=== PATIENT | male | born 1950 | race Caucasian/White ===

== ENCOUNTER → 2017-01-25 | Outpatient (CLI) | payer MEDICARE, OTHER | END | disposition home or self-care (01) | LOC: LABWHC1 09:25 | PROVIDERS: ATTEND Internal Medicine Endocrinology, Diabetes & Metabolism | DX: E89.0 Postprocedural hypothyroidism (principal) | CPT/HCPCS: 36415; 84439; 84443 ==

== ENCOUNTER 2017-04-27 13:09 | Emergency (ER) | payer MEDICARE, OTHER ==
[2017-04-27] MEDS ORDERED: LORazepam 2 MG/ML SYRINGE IV STA (13:10)
[2017-04-27 13:17] VITALS: TEMP 99.2
--- NOTE | 2017-04-27 13:33 | ED ---
General Adult HPI <Júnior Brady - Last Filed: 04/27/17 21:13> - General Source: patient, RN notes reviewed Mode of arrival: ambulatory <Marcelino Penaloza - Last Filed: 04/28/17 07:40> - General Chief complaint: Psychiatric Symptoms Stated complaint: ETOH Time Seen by Provider: 04/27/17 13:15 - History of Present Illness Initial comments: This is a 67-year-old male presents emergency Department complaining of being an alcoholic. Patient states he quit for 8 years but about 4 months ago surgery heavily daily. Patient states today he was drinking again and he got depressed and thought he might harm himself came to the emergency department. Patient also complains of mild nausea. Patient denies any chest pain difficulty breathing shortest breath per patient denies any recent fever chills or cough. Patient denies abdominal pain patient denies nausea vomiting diarrhea. Patient denies headache patient denies numbness weakness. Patient has no specific plan for suicide and patient has no homicidal thoughts (Marcelino Penaloza) - Related Data Home Medications Medication Instructions Recorded Confirmed Ascorbic Acid [Vitamin C] 1,000 mg PO DAILY 04/27/17 04/27/17 Cholecalciferol [Vitamin D3] 1,000 unit PO DAILY 04/27/17 04/27/17 Levothyroxine Sodium [Levoxyl] 100 mcg PO DAILY 04/27/17 04/27/17 Losartan [Cozaar] 50 mg PO DAILY 04/27/17 04/27/17 Metoprolol Succinate (ER) [Toprol 50 mg PO BID 04/27/17 04/27/17 Xl] Multivitamins, Thera [Multivitamin 1 tab PO DAILY 04/27/17 04/27/17 (formulary)] Allergies Allergy/AdvReac Type Severity Reaction Status Date / Time No Known Allergies Allergy Verified 04/27/17 14:09 Review of Systems ROS Other: All systems not noted in ROS Statement are negative. <Júnior Brady - Last Filed: 04/27/17 21:13> ROS Other: All systems not noted in ROS Statement are negative. <Marcelino Penaloza - Last Filed: 04/28/17 07:40> ROS Statement: Those systems with pertinent positive or pertinent negative responses have been documented in the HPI. Past Medical History Past Medical History: No Reported History History of Any Multi-Drug Resistant Organisms: None Reported Past Surgical History: No Surgical Hx Reported Past Psychological History: Anxiety Smoking Status: Never smoker Past Alcohol Use History: Abuse, Heavy Past Drug Use History: None Reported <Marcelino Penaloza - Last Filed: 04/28/17 07:40> General Exam <YuligilJúnior - Last Filed: 04/27/17 21:13> <Marcelino Penaloza - Last Filed: 04/28/17 07:40> - General Exam Comments Initial Comments: GENERAL: Patient is well-developed and well-nourished. Patient is nontoxic and well- hydrated and is in no acute distress. ENT: Neck is soft and supple. No significant lymphadenopathy is noted. Oropharynx is clear. Moist mucous membranes. Neck has full range of motion without eliciting any pain. EYES: The sclera were anicteric and conjunctiva were pink and moist. Extraocular movements were intact and pupils were equal round and reactive to light. Eyelids were unremarkable. PULMONARY: Unlabored respirations. Good breath sounds bilaterally. No audible rales rhonchi or wheezing was noted. CARDIOVASCULAR: There is a regular rate and rhythm without any murmurs gallops or rubs. ABDOMEN: Soft and nontender with normal bowel sounds. No palpable organomegaly was noted. There is no palpable pulsatile mass. SKIN: Skin is clear with no lesions or rashes and otherwise unremarkable. NEUROLOGIC: Patient is alert and oriented x3. Cranial nerves II through XII are grossly intact. Motor and sensory are also intact. Normal speech, volume and content. Symmetrical smile. MUSCULOSKELETAL: Normal extremities with adequate strength and full range of motion. No lower extremity swelling or edema. No calf tenderness. LYMPHATICS: No significant lymphadenopathy is noted PSYCHIATRIC: Patient states she's been very depressed since he started drinking again and he has been thinking of harming himself even though he thinks he won't do it. (Marcelino Penaloza) Medical Decision Making - Lab Data Result diagrams: 04/27/17 13:50 04/27/17 13:50 <Júnior Brady - Last Filed: 04/27/17 21:13> - Lab Data Result diagrams: 04/27/17 13:50 04/27/17 13:50 <Marcelino Penaloza - Last Filed: 04/28/17 07:40> - Medical Decision Making Patient is now clinically sober. He has been reevaluated by myself and he is lyndsay for safety. He has been seen by behavioral health. He is not requiring admission for suicidality. Patient counseled to stop drinking heavily. Return parameters discussed (Júnior Brady) - Lab Data Lab Results 04/27/17 04/27/17 04/27/17 Range/Units 13:50 13:50 13:50 WBC 7.3 (3.8-10.6) k/uL RBC 4.63 (4.30-5.90) m/uL Hgb 16.0 (13.0-17.5) gm/dL Hct 48.8 (39.0-53.0) % MCV 105.3 H (80.0-100.0) fL MCH 34.6 (25.0-35.0) pg MCHC 32.8 (31.0-37.0) g/dL RDW 14.2 (11.5-15.5) % Plt Count 180 (150-450) k/uL Neutrophils % 71 % Lymphocytes % 21 % Monocytes % 4 % Eosinophils % 1 % Basophils % 1 % Neutrophils # 5.2 (1.3-7.7) k/uL Lymphocytes # 1.6 (1.0-4.8) k/uL Monocytes # 0.3 (0-1.0) k/uL Eosinophils # 0.1 (0-0.7) k/uL Basophils # 0.1 (0-0.2) k/uL Macrocytosis Moderate PT 10.3 (9.0-12.0) sec INR 1.0 (<1.2) APTT 23.5 (22.0-30.0) sec Sodium 146 H (137-145) mmol/L Potassium 4.2 (3.5-5.1) mmol/L Chloride 108 H (98-107) mmol/L Carbon Dioxide 23 (22-30) mmol/L Anion Gap 15 mmol/L BUN 20 (9-20) mg/dL Creatinine 1.32 H (0.66-1.25) mg/dL Est GFR (MDRD) Af Amer >60 (>60 ml/min/1.73 sqM) Est GFR (MDRD) Non-Af 54 (>60 ml/min/1.73 sqM) Glucose 63 L (74-99) mg/dL Calcium 8.9 (8.4-10.2) mg/dL Total Bilirubin 1.0 (0.2-1.3) mg/dL AST 69 H (17-59) U/L ALT 46 (21-72) U/L Alkaline Phosphatase 62 (38-126) U/L Total Protein 7.0 (6.3-8.2) g/dL Albumin 4.2 (3.5-5.0) g/dL Urine Opiates Screen (NotDetected) Ur Oxycodone Screen (NotDetected) Urine Methadone Screen (NotDetected) Ur Propoxyphene Screen (NotDetected) Ur Barbiturates Screen (NotDetected) U Tricyclic Antidepress (NotDetected) Ur Phencyclidine Scrn (NotDetected) Ur Amphetamines Screen (NotDetected) U Methamphetamines Scrn (NotDetected) U Benzodiazepines Scrn (NotDetected) Urine Cocaine Screen (NotDetected) U Marijuana (THC) Screen (NotDetected) 04/27/17 Range/Units 14:32 WBC (3.8-10.6) k/uL RBC (4.30-5.90) m/uL Hgb (13.0-17.5) gm/dL Hct (39.0-53.0) % MCV (80.0-100.0) fL MCH (25.0-35.0) pg MCHC (31.0-37.0) g/dL RDW (11.5-15.5) % Plt Count (150-450) k/uL Neutrophils % % Lymphocytes % % Monocytes % % Eosinophils % % Basophils % % Neutrophils # (1.3-7.7) k/uL Lymphocytes # (1.0-4.8) k/uL Monocytes # (0-1.0) k/uL Eosinophils # (0-0.7) k/uL Basophils # (0-0.2) k/uL Macrocytosis PT (9.0-12.0) sec INR (<1.2) APTT (22.0-30.0) sec Sodium (137-145) mmol/L Potassium (3.5-5.1) mmol/L Chloride (98-107) mmol/L Carbon Dioxide (22-30) mmol/L Anion Gap mmol/L BUN (9-20) mg/dL Creatinine (0.66-1.25) mg/dL Est GFR (MDRD) Af Amer (>60 ml/min/1.73 sqM) Est GFR (MDRD) Non-Af (>60 ml/min/1.73 sqM) Glucose (74-99) mg/dL Calcium (8.4-10.2) mg/dL Total Bilirubin (0.2-1.3) mg/dL AST (17-59) U/L ALT (21-72) U/L Alkaline Phosphatase (38-126) U/L Total Protein (6.3-8.2) g/dL Albumin (3.5-5.0) g/dL Urine Opiates Screen Not Detected (NotDetected) Ur Oxycodone Screen Not Detected (NotDetected) Urine Methadone Screen Not Detected (NotDetected) Ur Propoxyphene Screen Not Detected (NotDetected) Ur Barbiturates Screen Not Detected (NotDetected) U Tricyclic Antidepress Not Detected (NotDetected) Ur Phencyclidine Scrn Not Detected (NotDetected) Ur Amphetamines Screen Not Detected (NotDetected) U Methamphetamines Scrn Not Detected (NotDetected) U Benzodiazepines Scrn Not Detected (NotDetected) Urine Cocaine Screen Not Detected (NotDetected) U Marijuana (THC) Screen Not Detected (NotDetected) Disposition <Júnior Brady - Last Filed: 04/27/17 21:13> <Marcelino Penaloza - Last Filed: 04/28/17 07:40> Clinical Impression: Alcohol intoxication Disposition: HOME SELF-CARE Condition: Fair Instructions: Alcohol Intoxication (ED) Referrals: Martínez Garcia MD [Primary Care Provider] - 1-2 days
[2017-04-27 14:02] LABS: Basophils # (A) 0.1 k/uL (0-0.2); Basophils % (A) 1 %; CH 35.1; CHCM 33.5; Eosinophils # (A) 0.1 k/uL (0-0.7); Eosinophils % (A) 1 %; HCT 48.8 % (39.0-53.0); HDW 2.41; Luc # (Auto) 0.18; Luc % (Auto) 2; Lymphocytes # (A) 1.6 k/uL (1.0-4.8); Lymphocytes % (A) 21 %; MCH 34.6 pg (25.0-35.0); MCHC 32.8 g/dL (31.0-37.0); MCV 105.3 fL (80.0-100.0); Macrocytosis Moderate; Mean Platelet Volume 7.3; Monocytes # (A) 0.3 k/uL (0-1.0); Monocytes % (A) 4 %; Neutrophils # (A) 5.2 k/uL (1.3-7.7); Neutrophils % (A) 71 %; RBC 4.63 m/uL (4.30-5.90); RDW 14.2 % (11.5-15.5); WBC 7.3 k/uL (3.8-10.6); WBC (Perox) 7.06
[2017-04-27 14:13] LABS: ALT 46 U/L (21-72); AST 69 U/L (17-59); Alkaline Phosphatase 62 U/L (38-126); Anion Gap 15 mmol/L; Blood Urea Nitrogen 20 mg/dL (9-20); Calcium 8.9 mg/dL (8.4-10.2); Carbon Dioxide 23 mmol/L (22-30); Chloride 108 mmol/L (98-107); Glucose 63 mg/dL (74-99); Non-African American GFR(MDRD) 54 (>60 ml/min/1.73 sqM); Partial Thromboplastin Time 23.5 sec (22.0-30.0); Potassium 4.2 mmol/L (3.5-5.1); Prothrombin Time 10.3 sec (9.0-12.0); Sodium 146 mmol/L (137-145)
[2017-04-27 21:23] VITALS: BP 133/63; PULSE 62; RESP 18
== END 2017-04-27 21:23 | disposition home or self-care (01) ==
LOC: EC 13:09
DX: F10.129 Alcohol abuse with intoxication, unspecified (principal); F32.9 Major depressive disorder, single episode, unspecified; R45.851 Suicidal ideations; Z79.899 Other long term (current) drug therapy
CPT/HCPCS: 36415; 80053; 80306; 82075; 85025; 85610; 85730; 99284

== ENCOUNTER → 2018-02-09 | Outpatient (CLI) | payer MEDICARE, OTHER ==
[2018-02-09 09:17] LABS: T4, Free (Free Thyroxine) 1.22 ng/dL (0.78-2.19)
== END | disposition home or self-care (01) ==
LOC: LABWHC1 08:27
PROVIDERS: ATTEND Internal Medicine Endocrinology, Diabetes & Metabolism
DX: E89.0 Postprocedural hypothyroidism (principal)
CPT/HCPCS: 36415; 84439; 84443

== ENCOUNTER → 2018-07-23 | Outpatient (CLI) | payer MEDICARE, OTHER ==
[2018-07-23 07:47] LABS: HCT 43.6 % (39.0-53.0); HGB 14.1 gm/dL (13.0-17.5); MCH 31.1 pg (25.0-35.0); MCHC 32.4 g/dL (31.0-37.0); MCV 95.8 fL (80.0-100.0); Mean Platelet Volume 7.1; Platelet Count 150 k/uL (150-450); RBC 4.55 m/uL (4.30-5.90); WBC 4.7 k/uL (3.8-10.6)
[2018-07-23 11:32] LABS: T4, Free (Free Thyroxine) 1.4 ng/dL (0.80-1.80)
[2018-07-23 11:36] LABS: Anion Gap 4.7 mmol/L (4.00-12.00); Calcium 8.6 mg/dL (8.7-10.3); Carbon Dioxide 29.3 mmol/L (21.6-31.8); LDL Cholesterol,Calculated 68.2 mg/dL (0.0-131.0); Potassium 4.6 mmol/L (3.5-5.5); Total Bilirubin 1.1 mg/dL (0.3-1.2); VLDL Calculation 20.8 mg/dL (5.00-40.00)
== END | disposition home or self-care (01) ==
LOC: LABWHC1 06:34
PROVIDERS: ATTEND Internal Medicine
DX: I10 Essential (primary) hypertension (principal); Z12.5 Encounter for screening for malignant neoplasm of prostate; E89.0 Postprocedural hypothyroidism
CPT/HCPCS: 84439; 80061; 80053; 84443; 85027; 36415; G0103

== ENCOUNTER → 2019-02-05 | Outpatient (CLI) | payer MEDICARE, OTHER | END | disposition home or self-care (01) | LOC: LABWHC1 15:43 | PROVIDERS: ATTEND Internal Medicine | DX: E89.0 Postprocedural hypothyroidism (principal) | CPT/HCPCS: 36415; 84439; 84443 ==

== ENCOUNTER → 2020-02-14 | Outpatient (CLI) | payer MEDICARE, OTHER ==
[2020-02-15 00:04] LABS: T4, Free (Free Thyroxine) 1.4 ng/dL (0.80-1.80)
== END | disposition home or self-care (01) ==
LOC: LABWHC1 08:37
PROVIDERS: ATTEND Internal Medicine
DX: E89.0 Postprocedural hypothyroidism (principal); E55.9 Vitamin D deficiency, unspecified
CPT/HCPCS: 36415; 82306; 84439; 84443

== ENCOUNTER → 2020-06-08 | Outpatient (CLI) | payer MEDICARE, OTHER ==
--- NOTE | 2020-06-08 11:01 | CT ---
EXAMINATION TYPE: CT abdomen pelvis w con DATE OF EXAM: 06/08/2020 COMPARISON: None. HISTORY: Diverticulitis, unspecified pain. CT DLP: 781.6 mGycm, Automated Exposure Control for Dose Reduction was Utilized. CONTRAST: CT scan of the abdomen and pelvis is performed without oral but with IV Contrast, patient injected wi th 75 mL of Isovue 300. FINDINGS: LUNG BASES: Mild cardiomegaly. At least moderate right atrial dilatation partially imaged. Mild to mo derate bibasilar linear scarring and/or atelectasis. LIVER/GB: Hypodense lesions consistent with simple thin-walled cysts scattered through the liver. PANCREAS: No significant abnormality is seen. SPLEEN: No significant abnormality is seen. ADRENALS: No significant abnormality is seen. KIDNEYS: Significant volume loss in cortical thinning upper to mid pole level left kidney. There are multiple lower pole calculi difficult to separate, staghorn type appearance measuring roughly 2.0 cm long axis is noted. Focal cortical volume loss bilaterally upper pole right kidney near a 7 mm right-sided calculus axial image 23, there is additional 8 mm calculus lower pole level right kidney axial image 30. Symmetric cortical uptake and excretion without hydronephrosis seen bilaterally. A few tiny simple ap pearing thin-walled cysts bilaterally are present. No intraluminal mass or calculus in the bladder. A ccessory left renal artery noted. BOWEL: No suspicious small or large bowel dilatation. There is mild wall thickening for reference zahraa r the splenic flexure and sigmoid colon felt to reflect product of poor distention. PROSTATE/SEMINAL VESICLES: Upper limits of normal size prostate gland LYMPH NODES: No greater than 1cm abdominal or pelvic lymph nodes are appreciated. OSSEOUS STRUCTURES: Spine straightened on sagittal images. [id number]-qr-joygdelg disc space narrowing lumb osacral junction. Prominent L1 transverse processes are noted. OTHER: Small to moderate-sized fat-containing left inguinal hernia. Marked narrowing of the celiac ar suzanne at its origin with complete occlusion of bowel present sagittal image 65. It appears high in pos ition. IMPRESSION: 1. No CT evidence for diverticulosis or acute diverticulitis. 2. Correlate clinically for Celiac artery compression syndrome as detailed above. 3. Bilateral renal calculi. Bilateral areas of cortical volume loss. Evidence of chronic medical gucci l disease.
== END | disposition home or self-care (01) ==
LOC: RADCTMAIN 07:53
PROVIDERS: ATTEND Surgery Plastic and Reconstructive Surgery
DX: N20.0 Calculus of kidney (principal); N18.9 Chronic kidney disease, unspecified
CPT/HCPCS: 82565; 84520; 74177; 36415; Q9967

== ENCOUNTER → 2021-09-24 | Outpatient (CLI) | payer MEDICARE, OTHER ==
[2021-09-24 23:31] LABS: T4, Free (Free Thyroxine) 1.64 ng/dL (0.800-1.800)
== END | disposition home or self-care (01) ==
LOC: LABWHC1 11:11
PROVIDERS: ATTEND Internal Medicine
DX: E03.9 Hypothyroidism, unspecified (principal); E55.9 Vitamin D deficiency, unspecified
CPT/HCPCS: 36415; 82306; 84439; 84443

== ENCOUNTER → 2022-09-19 | Outpatient (CLI) | payer MEDICARE, OTHER ==
[2022-09-19 16:39] LABS: T4, Free (Free Thyroxine) 1.24 ng/dL (0.800-1.800)
== END | disposition home or self-care (01) ==
LOC: LABWHC1 08:07
PROVIDERS: ATTEND Internal Medicine
DX: E55.9 Vitamin D deficiency, unspecified (principal); E89.0 Postprocedural hypothyroidism
CPT/HCPCS: 36415; 82306; 84439; 84443

== ENCOUNTER → 2023-05-29 | Outpatient (CLI) | payer MEDICARE, OTHER ==
--- NOTE | 2023-05-29 16:59 | CA ---
Transthoracic Echo Report Name: Karlos Rios Age: 73 Gender: M : 1950 Exam Date: 05/29/2023 15:09 Exam Location: [facility] Ht (in): 72 Wt (lb): 175 Ordering Physician: Abhaytaesther, Physician Attending/Referring Phys: Sarbjit Chauhan MD [employer] Dahlia Sandoval RDCS Procedure CPT: Indications: I34.1 NONRHEUMATIC MITRAL (VALVE) PROLAPSE Cardiac Hx: Technical Quality: Fair Contrast 1: Total Dose (mL): Contrast 2: Total Dose (mL): MEASUREMENTS (Male / Female) Normal Values 2D ECHO LV Diastolic Diameter PLAX 5.2 cm 4.2 - 5.9 / 3.9 - 5.3 cm LV Systolic Diameter PLAX 2.9 cm IVS Diastolic Thickness 1.2 cm 0.6 - 1.0 / 0.6 - 0.9 cm LVPW Diastolic Thickness 1.1 cm 0.6 - 1.0 / 0.6 - 0.9 cm LV Relative Wall Thickness 0.4 RV Internal Dim ED PLAX 3.5 cm LA Volume 113.9 cm??? 18 - 58 / 22 - 52 cm??? DOPPLER AV Peak Velocity 147.3 cm/s AV Peak Gradient 8.7 mmHg AV Mean Velocity 96.9 cm/s AV Mean Gradient 4.4 mmHg AV Velocity Time Integral 32.5 cm LVOT Peak Velocity 97.5 cm/s LVOT Peak Gradient 3.8 mmHg LVOT Velocity Time Integral 22.0 cm MV Area PHT 5.9 cm??? MR Peak Velocity 520.8 cm/s MR Peak Gradient 108.5 mmHg MR ERO PISA 0.5 cm??? MR Regurgitant Volume PISA 81.1 cm??? Mitral E Point Velocity 72.2 cm/s Mitral A Point Velocity 74.0 cm/s Mitral E to A Ratio 1.0 MV Deceleration Time 128.8 ms MV E' Velocity 5.0 cm/s Mitral E to MV E' Ratio 14.5 TR Peak Velocity 281.2 cm/s TR Peak Gradient 31.6 mmHg Right Ventricular Systolic Press 35.8 mmHg FINDINGS Left Ventricle Mildly increased left ventricular wall thickness. Left ventricular cavity size normal. Normal left ventricular systolic function with no obvious regional wall motion abnormalities. Left ventricular ejection fraction is estimated at 55-60 %. Right Ventricle Mild right ventricular dilatation. Right ventricular systolic pressure within normal limits. Right Atrium Mild right atrial dilatation. Left Atrium Severely increased left atrial volume. Moderately increased left atrial area. Mitral Valve Structurally normal mitral valve. Mildly redundant mitral valve leaflets. Mild to moderate mitral regurgitation, mainly late systole. Mild mitral annular calcification. Aortic Valve Trileaflet aortic valve. No aortic valve stenosis or regurgitation. Tricuspid Valve Structurally normal tricuspid valve. Mild tricuspid regurgitation. Pulmonic Valve Structurally normal pulmonic valve. Trace to mild pulmonic regurgitation. Pericardium No pericardial effusion. Aorta Normal size aortic root and proximal ascending aorta. CONCLUSIONS Left ventricular ejection fraction 55-60% Mild increased left ventricular wall thickness RVSP 36 Moderately dilated left atrium Mildly redundant mitral valve leaflets Mild to moderate mitral regurgitation Mild tricuspid regurgitation Previewed by: Dr. Lonny Morales DO (Electronically Signed) Final Date: 29 May 2023 16:57
== END | disposition home or self-care (01) ==
LOC: RADECHMAIN 15:03
PROVIDERS: ATTEND Internal Medicine Cardiovascular Disease
DX: I08.1 Rheumatic disorders of both mitral and tricuspid valves (principal)
CPT/HCPCS: 93306

== ENCOUNTER → 2025-01-01 | Outpatient (CLI) | payer MEDICARE, OTHER ==
--- NOTE | 2025-01-01 14:02 | US ---
EXAMINATION TYPE: US kidneys/renal and bladder DATE OF EXAM: 01/01/2025 COMPARISON: CT 2019 CLINICAL INDICATION: Male, 74 years old with history of N18.9 CHRONIC KIDNEY DISEASE, UNSPECIFIED; TECHNIQUE: Grayscale imaging of the bilateral kidneys and urinary bladder: FINDINGS: EXAM MEASUREMENTS: Right Kidney: 9.1 x 5.2 x 4.4 cm Left Kidney: 9.1 x 4.6 x 4.8 cm Right Kidney: multiple stones with largest measuring 0.7cm Left Kidney: cortical thinning, 1.5cm cyst lateral inferior pole, multiple stones with largest measur ing 1.0cm Bladder: wnl Bilateral Jets seen: right jet not seen, left jet seen IMPRESSION: 1. Nonobstructing bilateral renal stones. [facility], Workstation: [facility], 01/01/2025 2:00 PM
== END | disposition home or self-care (01) ==
LOC: RADUSWWP 13:28
PROVIDERS: ATTEND Internal Medicine
DX: N18.9 Chronic kidney disease, unspecified (principal); N20.0 Calculus of kidney
CPT/HCPCS: 76770

== ENCOUNTER → 2025-03-25 | Outpatient (CLI) | payer MEDICARE, OTHER ==
[2025-03-25 14:58] LABS: Bilirubin,Urine Negative (Negative); Blood,Urine Small (Negative); Color,Urine Yellow (Yellow); Ketones,Urine Negative (Negative); Nitrite,Urine Negative (Negative); PH, Urine 7.0; Specific Gravity,Urine 1.003 (1.001-1.030); Urobilinogen,Urine 0.2 E.U./DL
[2025-03-25 15:22] LABS: ALT 18 U/L (10-49); AST 28 U/L (14-35); Albumin 4.2 g/dL (3.8-4.9); Albumin/Globulin Ratio 1.83 Ratio (1.60-3.17); Alkaline Phosphatase 39 U/L (41-126); Anion Gap 10.40 mmol/L (4.00-12.00); BUN/Creat Ratio 7.67 Ratio (12.00-20.00); Blood Urea Nitrogen 11.5 mg/dL (9.0-27.0); Calcium 9.0 mg/dL (8.7-10.3); Carbon Dioxide 24.6 mmol/L (21.6-31.8); Chloride 104 mmol/L (96-109); Globulin 2.3 g/dL (1.6-3.3); Glucose 113 mg/dL (70-110); Magnesium 2.0 mg/dL (1.5-2.4); Potassium 4.9 mmol/L (3.5-5.5); Sodium 139 mmol/L (135-145); Total Protein 6.5 g/dL (6.2-8.2)
[2025-03-25 15:36] LABS: Basophils # (A) 0.04 X 10*3/uL (0.00-0.10); Basophils % (A) 0.6 %; Eosinophils # (A) 0.11 X 10*3/uL (0.04-0.35); Eosinophils % (A) 1.6 %; HCT 45.6 % (39.6-50.0); HGB 14.9 g/dL (13.0-17.0); Immature Grans, Automated 0.40 %; Lymphocytes # (A) 1.01 X 10*3/uL (0.90-5.00); Lymphocytes % (A) 14.9 %; MCH 31.8 pg (27.0-32.0); MCHC 32.7 g/dL (32.0-37.0); MCV 97.4 FL (80.0-97.0); Monocytes # (A) 0.51 X 10*3/uL (0.20-1.00); Monocytes % (A) 7.5 %; NRBC Per 100 WBC 0 X 10*3/uL (0.00-0.01); Neutrophils # (A) 5.07 X 10*3/uL (1.80-7.70); Neutrophils % (A) 75.0 %; Platelet Count 177 X 10*3/uL (140-440); RBC 4.68 X 10*6/uL (4.40-5.60); RDW 13.6 % (11.5-14.5); WBC 6.77 X 10*3/uL (4.50-10.00)
[2025-03-25 15:48] LABS: Bacteria,Urine None Seen (None Seen)
== END | disposition home or self-care (01) ==
LOC: LABWHC1 10:47
PROVIDERS: ATTEND Internal Medicine
DX: N18.9 Chronic kidney disease, unspecified (principal)
CPT/HCPCS: 36415; 80053; 81001; 82043; 82570; 83735; 84100; 85025